=== PATIENT | male | born 1980 | race Caucasian/White ===

== ENCOUNTER 2020-01-30 19:08 | Emergency (ER) | payer SELFPAY ==
--- NOTE | 2020-01-30 19:21 | NUR ---
registration error (patient [id number] not exist)
== END 2020-01-30 19:23 | disposition left against medical advice (07) ==
LOC: ED 19:17
DX: R68.89 Other general symptoms and signs (principal); Z53.21 Procedure and treatment not carried out due to patient leaving prior to being seen by health care provider